=== PATIENT | female | born 1950 | race Caucasian/White ===

== ENCOUNTER 2022-10-24 15:27 | Emergency (ER) | payer MEDICARE ==
[~2022-10-24] VITALS: Ht 165.1 cm; Wt 54.0 kg
[2022-10-24] MEDS ORDERED: LIPITOR20 MG PO (16:06)
[2022-10-24 16:34] LABS: HEMATOCRIT 34.7 % (37.0-47.0); HEMOGLOBIN 11.6 g/dl (12.0-16.0); IMMATURE GRANULOCYTES 0.1 % (0.0-5.0); MEAN CELL VOLUME 96.4 fL CALC (80.0-100.0); MEAN CORPUSCULAR HGB 32.2 pG CALC (26.0-32.0); MEAN CORPUSCULAR HGB CONC 33.4 g/dL CAL (32.0-36.0); NEUT# 4.79 thou/uL (2.00-7.15); RED BLOOD COUNT 3.6 mill/uL (4.20-5.60); RED CELL DISTRI WIDTH 13.7 % (11.5-15.5)
[2022-10-24 16:44] LABS: ALBUMIN 4.1 g/dL (3.2-5.0); ALKALINE PHOSPHATASE 70 u/l (38-126); ANION GAP 11 (6-22 (CALC)); BILIRUBIN, TOTAL 0.3 mg/dL (0.0-1.4); BUN 10 mg/dL (8-23); BUN/CREATININE RATIO 12 (12-20 (CALC)); C-REACTIVE PROTEIN < 0.5 mg/dL (0-0.9); CARBON DIOXIDE 25 mmol/l (22-30); CHLORIDE 108 mmol/l (95-108); CREATININE 0.8 mg/dL (0.5-1.0); GFR FOR AFR.AMER. > 60 ML/MIN (>=60 (CALC)); GFR OTHER RACES > 60 ML/MIN (>=60 (CALC)); POTASSIUM 2.5 mmol/l (3.5-5.1); SGOT/AST 28 u/l (9-36); SODIUM 142 mmol/l (137-146); TOTAL PROTEIN 6.7 g/dL (6.3-8.2)
[2022-10-24] MEDS ORDERED: KLOR-CON M1010 MEQ PO (19:35)
[2022-10-24 21:52] VITALS: BP 137/64
== END 2022-10-24 21:52 | disposition home or self-care (01) ==
LOC: ED 15:27
PROVIDERS: Nurse Practitioner
DX: S81.802A Unspecified open wound, left lower leg, initial encounter (principal); E87.6 Hypokalemia; E78.5 Hyperlipidemia, unspecified; W22.09XA Striking against other stationary object, initial encounter